=== PATIENT | male | born 1995 | race American Indian/Alaskan Native ===

== ENCOUNTER 2021-09-15 21:39 | Emergency (ER) | payer BC ==
[2021-09-15 21:46] VITALS: BP 196/104
== END 2021-09-16 00:20 | disposition left against medical advice (07) ==
LOC: ED 21:39
DX: R07.9 Chest pain, unspecified (principal); Z53.21 Procedure and treatment not carried out due to patient leaving prior to being seen by health care provider

== ENCOUNTER 2021-09-22 10:43 | Outpatient (CLI) | payer BC ==
[2021-09-22] MEDS ORDERED: LIDOCAINE (4%) 40 MG/ML TOPICAL SOLN 50 ML BOTTLE TP SCH (11:00)
[2021-09-22] MEDS ORDERED: SILVER NITRATE APPLICATOR 1 EA TP ONE (11:56)
== END 2021-09-22 10:44 | disposition home or self-care (01) ==
LOC: WOUND 10:43
PROVIDERS: ATTEND Surgery
DX: E11.621 Type 2 diabetes mellitus with foot ulcer (principal); L97.523 Non-pressure chronic ulcer of other part of left foot with necrosis of muscle; I10 Essential (primary) hypertension; K21.9 Gastro-esophageal reflux disease without esophagitis; E11.69 Type 2 diabetes mellitus with other specified complication; M86.8X7 Other osteomyelitis, ankle and foot; Z79.899 Other long term (current) drug therapy
CPT/HCPCS: 11043; 36415; 82565; G0463; 99204; 99214

== ENCOUNTER 2021-09-22 13:24 | Outpatient (CLI) | payer BC | END 2021-09-22 13:25 | disposition home or self-care (01) | LOC: LAB 13:24 | PROVIDERS: ATTEND Surgery | DX: E11.621 Type 2 diabetes mellitus with foot ulcer (principal); L97.523 Non-pressure chronic ulcer of other part of left foot with necrosis of muscle | CPT/HCPCS: 36415; 82565 ==

== ENCOUNTER 2021-09-29 11:30 | Outpatient (CLI) | payer BC ==
[2021-09-29] MEDS ORDERED: SILVER NITRATE APPLICATOR 1 EA TP ONE (11:59)
== END 2021-09-29 11:31 | disposition home or self-care (01) ==
LOC: WOUND 11:30
PROVIDERS: ATTEND Surgery
DX: E11.621 Type 2 diabetes mellitus with foot ulcer (principal); L97.523 Non-pressure chronic ulcer of other part of left foot with necrosis of muscle; L84 Corns and callosities; I10 Essential (primary) hypertension; K21.9 Gastro-esophageal reflux disease without esophagitis; E11.69 Type 2 diabetes mellitus with other specified complication; M86.8X7 Other osteomyelitis, ankle and foot; F12.90 Cannabis use, unspecified, uncomplicated; Z98.890 Other specified postprocedural states; Z79.899 Other long term (current) drug therapy

== ENCOUNTER 2021-12-06 14:01 | Outpatient (CLI) | payer BC ==
[2021-12-06] MEDS ORDERED: LIDOCAINE (4%) 40 MG/ML TOPICAL SOLN 50 ML BOTTLE TP ONE (14:12)
[2021-12-06] MEDS ORDERED: SILVER NITRATE APPLICATOR 1 EA TP NR (14:35)
== END 2021-12-06 14:02 | disposition home or self-care (01) ==
LOC: WOUND 14:01
PROVIDERS: ATTEND Surgery
DX: E11.621 Type 2 diabetes mellitus with foot ulcer (principal); L97.523 Non-pressure chronic ulcer of other part of left foot with necrosis of muscle; L84 Corns and callosities; I10 Essential (primary) hypertension; K21.9 Gastro-esophageal reflux disease without esophagitis; E11.69 Type 2 diabetes mellitus with other specified complication; M86.8X7 Other osteomyelitis, ankle and foot; F12.90 Cannabis use, unspecified, uncomplicated; Z98.890 Other specified postprocedural states; Z79.899 Other long term (current) drug therapy
CPT/HCPCS: 73630; G0463; 99214

== ENCOUNTER 2021-12-06 15:16 | Outpatient (CLI) | payer BC ==
--- NOTE | 2021-12-06 17:04 | XRay Report ---
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 COMPARISON: None available. FINDINGS: BONES/JOINT(S): No acute fracture or subluxation. 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 No focal bone erosions or focal osteopenia to suggest inflammatory arthropathy. No bone destructi on to suggest osteomyelitis. SOFT TISSUES: Skin wound in the plantar aspect of foot adjacent to the first MTP joint. No foreign alisa dies. ADDITIONAL FINDINGS: None. Signer Name: Tab Patterson MD Signed: 12/06/2021 4:59 PM Workstation Name: [id number]
== END 2021-12-06 15:17 | disposition home or self-care (01) ==
LOC: XRAY 15:16
PROVIDERS: ATTEND Surgery
DX: E11.621 Type 2 diabetes mellitus with foot ulcer (principal); L97.523 Non-pressure chronic ulcer of other part of left foot with necrosis of muscle